=== PATIENT | male | born 1990 | race Caucasian/White ===

== ENCOUNTER 2016-09-19 10:24 | Emergency (ER) | payer OTHER ==
[~2016-09-19] VITALS: Ht 172.7 cm; Wt 78.9 kg
[2016-09-19 10:40] VITALS: BP 140/76
--- NOTE | 2016-09-19 11:48 | NUR ---
PATIENT TO BED 7.
--- NOTE | 2016-09-19 11:55 | NUR ---
26/M presents to ED with complaints of throat pain x 3 days. Patient also states he had a fever yesterday. Afebrile. Patient is AOX4, ambulatory with steady gait. VSS.
--- NOTE | 2016-09-19 12:00 | NUR ---
Patient being evaluated by physician at bedside.
[2016-09-19] MEDS: ACETAMIN/CODEINE 120/12MG-5ML 5 ML UDC PO ONE (12:10)
[2016-09-19] MEDS: DEXAMETHASONE 4 MG/ML VIAL PO ONE (12:10)
[2016-09-19] MEDS: PENICILLIN G BENZATHINE L-A 2.4 MU/4 ML SYR IM ONE (12:11)
[2016-09-19 12:33] VITALS: BP 140/76
--- NOTE | 2016-09-19 12:36 | NUR ---
Patient discharged with v/s stable. Written and verbal after care instructions given and explained. Patient alert, oriented and verbalized understanding of instructions. Ambulatory with steady gait. All questions addressed prior to discharge. ID band removed. Patient advised to follow up with PMD. Rx of TYLENOL WITH CODEINE AND MEDROL DOSE PACK given. Patient educated on indication of medication including possible reaction and side effects. Opportunity to ask questions provided and answered.
== END 2016-09-19 12:36 | disposition home or self-care (01) ==
LOC: MED 10:24
DX: J02.0 Streptococcal pharyngitis (principal); F12.90 Cannabis use, unspecified, uncomplicated
CPT/HCPCS: 87081; 96372; 99284; J0561; J1100

== ENCOUNTER 2017-09-16 13:35 | Emergency (ER) | payer OTHER ==
[~2017-09-16] VITALS: Ht 170.2 cm; Wt 74.9 kg
[2017-09-16 13:58] VITALS: BP 126/67
[2017-09-16] MEDS ORDERED: cefTRIAXone 250 MG VIAL ONE (14:17)
[2017-09-16] MEDS ORDERED: LIDOCAINE 1% 50 ML ONE (14:18)
[2017-09-16] MEDS: cefTRIAXone 250 MG in LIDOCAINE MPF 1% - **ER/OR** 0.9 ML IM ONE (14:21)
[2017-09-18 06:20] LABS: CHLAMYDIA TRACHOMATIS AMP DNA Negative (Negative)
== END 2017-09-16 14:30 | disposition home or self-care (01) ==
LOC: MED 13:35
DX: R36.9 Urethral discharge, unspecified (principal); R30.0 Dysuria
CPT/HCPCS: 36415; 81002; 87491; 96372; 99283; J0696; J2001